=== PATIENT | female | born 1985 | race Caucasian/White ===

== ENCOUNTER 2019-03-16 04:28 | Emergency (ER) | payer OTHER ==
[~2019-03-16] VITALS: Ht 165.1 cm; Wt 77.1 kg
[2019-03-16] MEDS ORDERED: MUPIROCIN22 GM TOP (06:57)
[2019-03-16] MEDS ORDERED: KETO10TA2 PO (06:57)
[2019-03-16] MEDS ORDERED: CEFUROXIME500 MG PO (06:57)
== END 2019-03-16 07:37 | disposition home or self-care (01) ==
LOC: ER 04:28
DX: S00.83XA Contusion of other part of head, initial encounter (principal); S10.83XA Contusion of other specified part of neck, initial encounter; Y08.89XA Assault by other specified means, initial encounter; Y93.89 Activity, other specified; Y92.89 Other specified places as the place of occurrence of the external cause; Y99.8 Other external cause status